=== PATIENT | male | born 1975 | race Caucasian/White ===

== ENCOUNTER 2017-09-13 17:48 | Emergency (ER) | payer BC ==
[2017-09-13 17:57] VITALS: TEMP 98.4
--- NOTE | 2017-09-13 18:01 | CPEKG ---
Heart Rate: 90 RR Interval: 667 P-R Interval: 172 QRSD Interval: 102 QT Interval: 388 QTC Interval: 475 P [place]: 68 QRS [place]: 67 T Wave [place]: 52 EKG Severity - NORMAL ECG - EKG Impression: SINUS RHYTHM Electronically Signed By: Mariel Sloan 13-Sep-2017 22:41:51
[2017-09-13 18:05] LABS: PLATELET COUNT 146 10^3/uL (150-400)
[2017-09-13 18:07] VITALS: O2SAT 95
--- NOTE | 2017-09-13 19:05 | EDPHY ---
H & P Stated Complaint: seizure - Personal History Current Tetanus Diphtheria and Acellular Pertussis (TDAP): Yes Tetanus Vaccine Date: <10 years - Medical/Surgical History Hx Asthma: No Hx Chronic Respiratory Disease: No Hx Diabetes: No Hx Cardiac Disease: No Hx Renal Disease: No Hx Cirrhosis: No Hx Alcoholism: Yes Hx HIV/AIDS: No Hx Splenectomy or Spleen Trauma: No Other PMH: epilepsy, plaque psoriasis, etoh abuse, jaw surgery - titanium implants throughout jaw (25 yrs ago) - Social History Smoking Status: Current some day smoker HPI/ROS: Chief complaint: Seizure History of present illness: This is a 42-year-old male with a reported history of epilepsy, currently on Keppra, brought to the emergency department by EMS after having a grand mal seizure. Patient was apparently at a bar when he slumped over and had a grand mal seizure that was witnessed. He did bite his cheek. There is urinary incontinence. EMS reports an improving postictal state. On my evaluation. He is alert and oriented x4. He states he is sore but otherwise feels well. States this is a typical type seizure. He gets a seizure 1 time a year or less, his last seizure was 8 to 9 months ago. He is followed by Dr. Ubaldo Turner. He takes Keppra daily and has not missed a dose recently. He does drink but he states not heavily. No other complaints. Review of systems: A 10 point review of systems was obtained and other than described above was negative (Slava Nathan) - Physical Exam Exam: General Appearance: Alert, nontoxic. Eyes: Pupils equal and round no pallor or injection. ENT, Mouth: Mucous membranes moist. Respiratory: There are no retractions, lungs are clear to auscultation. Cardiovascular: Regular rate and rhythm. Gastrointestinal: Abdomen is soft and non tender, no masses, bowel sounds normal. Neurological: Alert and oriented x4. Cranial nerves 2-12 grossly intact. Strength and sensation intact and symmetrical Skin: Warm and dry, no rashes. Musculoskeletal: The head is nontender Neck is supple non tender. Spine is nontender along its entire length. Extremities are symmetrical, full range of motion. Psychiatric: Patient is oriented X 3, there is no agitation. (Slava Nathan) Constitutional: Initial Vital Signs Temperature (C) 36.9 C 09/13/17 17:50 Heart Rate 96 09/13/17 17:50 Respiratory Rate 18 09/13/17 17:50 Blood Pressure 124/79 H 09/13/17 17:50 O2 Sat (%) 94 09/13/17 17:50 O2 Delivery Mode Room Air Allergies/Adverse Reactions: No Known Allergies Allergy (Unverified 01/28/11 20:30) Home Medications: Medication Instructions Recorded Adalimumab [Humira] 40 mg SQ Q14D 04/21/16 Cholecalciferol Vit D3 [Vitamin D3 1,000 units PO DAILY 05/31/16 (*)] Cyanocobalamin [Vitamin B12 (*)] 1,000 mcg PO DAILY 05/31/16 Multivitamins [Multivitamin (*)] 1 each PO DAILY 05/31/16 levETIRAcetam [Keppra 500 mg (*)] 1,500 mg PO BID 05/31/16 Acetaminophen [Tylenol 325mg (*)] 650 mg PO Q4HRS PRN #0 tab 06/01/16 LORazepam [Ativan (*)] 1 mg PO Q4HRS PRN #5 tab 06/01/16 Thiamine HCl [Vitamin B-1] 100 mg PO DAILY #20 tab 06/01/16 Medical Decision Making ED Course/Re-evaluation: Patient is discussed with my secondary supervising physician Dr. Mariel Sloan. Patient has a history of epilepsy and presents to the emergency department with EMS after having a grand mal seizure. On my evaluation he is A and O x4 with a nonfocal neurologic exam. Blood studies consistent with recent seizure. EKG unremarkable. He is IV hydrated. He has become slightly tachycardic in the emergency room and I do wonder if this is a mixed picture of epilepsy and alcohol withdrawal. He is given Ativan and Librium and improves. I have consulted with his Neurology group, Dr. Mekhi Hartley. He is comfortable with patient being discharged home with seizure precautions and following up in clinic. I have discussed at length with the patient seizure precautions. He is to continue his medications. Stay away from alcohol. Close follow-up with his neurologist. Strict return precautions are given. Patient voiced understanding and agreement with plan. (Slava Nathan) Differential Diagnosis: Seizure secondary to epilepsy, alcohol withdrawal, substance abuse (Slava Nathan) Other Provider: The patient was evaluated and managed by the Physician Security Solutions Engineer. I discussed the patient's presentation and course with the physician certified dental assistant and agree with the evaluation. My co-signature indicates that I have reviewed this chart and I agree with the findings and plan of care as documented. I am the secondary supervising physician. (Mariel Sloan) - Data Points Laboratory Results: Laboratory Results 09/13/17 17:52 09/13/17 17:52 Medications Given: Discontinued Medications Chlordiazepoxide HCl (Librium) 25 mg PO EDNOW ONE Stop: 09/13/17 19:10 Last Admin: 09/13/17 19:21 Dose: 25 mg Sodium Chloride (Ns) 1,000 mls @ 0 mls/hr IV ONCE ONE; Wide Open PRN Reason: Protocol Stop: 09/13/17 19:10 Last Admin: 09/13/17 19:21 Dose: 1,000 mls Lorazepam (Ativan Injection) 1 mg IVP EDNOW ONE Stop: 09/13/17 19:10 Last Admin: 09/13/17 19:21 Dose: 1 mg Departure - Departure Disposition: Home, Routine, Self-Care Clinical Impression: Seizure Condition: Good Instructions: Epilepsy (ED) Additional Instructions: Please call your neurologist office tomorrow, tell them you were in the emergency room last night and need a follow-up visit Continue taking your Keppra as prescribed Drink plenty of fluids to stay hydrated Maintain seizure precautions until cleared by your neurologist, this includes no driving, no riding bikes or other vehicles, no bathing or swimming or any other activity where if you had a seizure you could hurt yourself or someone else Please avoid the use of alcohol If symptoms worsen or new symptoms develop return to the emergency room for recheck Referrals: Patient,NotPresent [Unknown] - As per Instructions Ubaldo Turner MD [Medical Doctor] - As per Instructions
[2017-09-13] MEDS ORDERED: NS 1,000 ML IV ONE (19:09)
[2017-09-13] MEDS ORDERED: LORazepam 2 MG/ML INJ IVP ONE (19:09)
[2017-09-13] MEDS ORDERED: chlordiazePOXIDE 25 MG CAP PO ONE (19:09)
[2017-09-13 20:11] VITALS: BP 116/85; PULSE 101; RESP 16
== END 2017-09-13 20:21 | disposition home or self-care (01) ==
LOC: EDUNIT#
PROC: 3E0337Z Introduction of Electrolytic and Water Balance Substance into Peripheral Vein, Percutaneous Approach (ICD-10-PCS; principal; 2017-09-13)
DX: G40.909 Epilepsy, unspecified, not intractable, without status epilepticus (principal); F17.200 Nicotine dependence, unspecified, uncomplicated; E86.9 Volume depletion, unspecified
CPT/HCPCS: 96374; J2060

== ENCOUNTER 2017-12-14 19:08 | Emergency (ER) | payer BC ==
[2017-12-14] MEDS ORDERED: LORazepam 2 MG/ML INJ IVP ONE (19:12)
[2017-12-14] MEDS ORDERED: NS 1,000 ML IV ONE (19:12)
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
[2017-12-14 20:17] LABS: PLATELET COUNT 103 10^3/uL (150-400)
[2017-12-14] MEDS ORDERED: CHLORDIAZEPOXIDE 25MG PREPK#6 BTL TAKEHOME ONE (20:35)
[2017-12-14 21:08] VITALS: BP 123/83
== END 2017-12-14 21:13 | disposition home or self-care (01) ==
LOC: EDUNIT#
DX: G40.909 Epilepsy, unspecified, not intractable, without status epilepticus (principal); F10.10 Alcohol abuse, uncomplicated; F17.200 Nicotine dependence, unspecified, uncomplicated; E86.9 Volume depletion, unspecified
CPT/HCPCS: 96374; J2060

== ENCOUNTER 2018-12-31 05:25 | Day surgery (SDC) | payer BC ==
[2018-12-31] MEDS ORDERED: LR 1,000 ML IV ONE (05:47)
[2018-12-31] MEDS ORDERED: BUPIVACAINE 0.5% 30 ML SDV ONE (06:20)
[2018-12-31] MEDS ORDERED: EPINEPHrine 30 MG/30 ML MDV (0.1 MG/0.1 ML) ONE (06:20)
[2018-12-31] MEDS ORDERED: LIDO/EPI 1% **for epidural** 30 ML SDV ONE (06:22)
[2018-12-31] MEDS ORDERED: LIDOCAINE 1% 300 MG/30 ML SDV ONE (06:23)
[2018-12-31] MEDS ORDERED: CLINDAMYCIN 600 MG/DEXTROSE 50 ML IV ONE (06:45)
--- NOTE | 2018-12-31 06:47 | SOAPPROG ---
SOAP Progress Note Assessment/Plan: HISTORY AND PHYSICAL Name LATONYA FENTON (43yo, M) ID# [id number] 1975 Service Dept[address] MAIN OFFICE Provider MOE SIM M.D. Insurance Med Primary: [employer] ([employer]) Insurance # : [id number] Policy/Group # : [id number] Prescription: PRIMBCAL - Member is eligible. details Chief Complaint right shoulder bicipital groove injection on 11/29/2018 with relief of symptoms x 1 week. Symptoms are currently worse then before injection. Patient states after injection left shoulder, left hand hurts and is stiff. Patient's Care Team Orthopedic Surgeon: MOE SIM MD: [id number], [place] [address] , , Patient's Pharmacies [facility] #[id number] ([facility]): [address], [facility] [address], , Vitals None recorded. Allergies Allergies not reviewed (last reviewed 11/20/2018) NKDA patient will call back regarding antibiotic that he is allergic to that has caused rash in past when treated for cellulitis Medications Reviewed Medications acamprosate 333 mg tablet,delayed release 11/04/18 filled [facility] DEPO-Medrol 40 mg/mL suspension for injection Take 1 mL by injection route. 11/29/18 administered Moe Sim M.D. Humira 05/31/18 entered [facility] Humira Pen 40 mg/0.8 mL subcutaneous kit 11/08/18 filled [facility] Keppra 05/31/18 entered [facility] levETIRAcetam 750 mg tablet 11/15/18 filled [facility] naltrexone 50 mg tablet 06/17/18 filled [facility] Vaccines None recorded. Problems Reviewed Problems No known problems Arthritis of acromioclavicular joint - Onset: 12/13/2018, Right Shoulder pain - Onset: 11/29/2018, Right Disorder of shoulder - Onset: 11/20/2018, Right Subacromial impingement - Onset: 12/13/2018, Right Family History Family History not reviewed (last reviewed 11/20/2018) Social History Social History not reviewed (last reviewed 05/31/2018) Smoking Status: Former smoker Alcohol intake: Moderate Caffeine intake: Occasional Surgical History Surgical History not reviewed (last reviewed 05/31/2018) Other - 08/13/1990 Past Medical History Past Medical History not reviewed (last reviewed 05/31/2018) Seizures/Epilepsy: Y Screening None recorded. HPI This is a very pleasant 43 year old RHD male with: - epilepsy (tonic clonic seizures) followed by Dr. Ubaldo Turner - alcoholism - 1990 -- maxillar surgery to correct a severe underbite - 1997 -- right shoulder injury while rock climbing -- treated with PT - 03/13/18 -- seizure - 05/2018 -- right shoulder pain and popping sensation -- s/s c/w right shoulder instability with probable labral tear - 06/10/18 -- seizure - 06/18/18 -- right shoulder MRI -- degenerative partial tear of the superior glenoid labrum, associated with moderate adjacent chondral thinning within the superior glenoid articular surface, acromioclavicular degenerative arthopathy, sprain/partial tear of the lateral fibers of the coracoclavicular ligament. - 08/06/18 -- three grand mal seizures after alcohol consumption -09/2018 -- increased right shoulder pain -11/26/18 -- right shoulder MRI -- mild tendinopathy and partial tear distal supraspinatus tendon, mild subacromial bursitis, partial or nondisplaced tear in posterior superior labrum, minimal tendinopathy intra-articular biceps tendon , mild degenerative change AC joint, anterior curve to acromion -11/29/18 -- right shoulder bicipital groove injection -- one week of symptomatic relief followed by recurrence of symptoms He presents today for routine follow up on his right shoulder after undergoing a right shoulder bicipital groove injection on 11/29/18. ROS ROS as noted in the HPI Physical Exam Patient is a 43-year-old male. Bilateral shoulder examination Inspection/palpation: Right: TTP over bicipital groove Left: Normal resting posture Shoulder ROM (R / L / Normal) Forward flexion: 150 / 170 / 170 Abduction: 100 / 160 / 160 Extension: 30 / 40 / 40 Shoulder strength (R / L / Normal) Deltoid : 5/ 5 / 5 Biceps: 5/ 5 / 5 Shoulder sensory (R / L / Normal) Axillary: + / + / + Shoulder tests Stability tests OBriens: + / - / - Apprehension: + / - / - Relocation: - / - / - Jerk: - / - / - Rotator cuff tests Empty can: + / - / - Belly press: - / - / - Lift off : - / - / - Impingement tests Brenden: + / - / - Neer: - / - / - Cross-arm adduction: - / - / - Biceps test Speeds: + / - / - Yergason supination: - / - / - Assessment / Plan This is a very pleasant 43 year old RHD male with: - epilepsy (tonic clonic seizures) followed by Dr. Ubaldo Turner - alcoholism - 1990 -- maxillar surgery to correct a severe underbite - 1997 -- right shoulder injury while rock climbing -- treated with PT - 03/13/18 -- seizure - 05/2018 -- right shoulder pain and popping sensation -- s/s c/w right shoulder instability with probable labral tear - 06/10/18 -- seizure - 06/18/18 -- right shoulder MRI completed -- degenerative partial tear of the superior glenoid labrum, associated with moderate adjacent chondral thinning within the superior glenoid articular surface, acromioclavicular degenerative arthopathy, sprain/partial tear of the lateral fibers of the coracoclavicular ligament. -08/06/18 -- three separate seizures after alcohol consumption -09/2018 -- increased right shoulder pain -11/26/18 -- right shoulder MRI -- mild tendinopathy and partial tear distal supraspinatus tendon, mild subacromial bursitis, partial or nondisplaced tear in posterior superior labrum, minimal tendinopathy intra-articular biceps tendon , mild degenerative change AC joint, anterior curve to acromion -11/29/18 -- right shoulder bicipital groove injection -- one week of symptomatic relief followed by a worsening of symptoms For the right shoulder: - I have discussed with the patient the risks, benefits, alternatives and complications associated with both non-operative (specifically, rest, observation, activity modification, PT, injection) and operative (specifically, right shoulder arthroscopy with subacromial decompression, distal clavicle excision, labral debridement, LHB tenotomy and possible RC debridement and/or repair) forms of treatment - The patient fully understands the risks, benefits, alternatives, and complications associated with these forms of treatment and wishes to proceed with surgical intervention as detailed above. - He has signed the informed consent form for surgery and surgery will be scheduled for the near future. 1. Disorder of shoulder - Right M25.811: Other specified joint disorders, right shoulder 2. Shoulder pain - Right M25.511: Pain in right shoulder 3. Subacromial impingement - Right M75.41: Impingement syndrome of right shoulder 4. Biceps tendinitis - Right M75.21: Bicipital tendinitis, right shoulder BICEPS TENDINITIS: EXERCISES 5. Arthritis of acromioclavicular joint - Right M13.811: Other specified arthritis, right shoulder Return to Office None recorded. Encounter Sign-Off Encounter signed-off by Moe Sim M.D. 12/31/18 06:46 Objective: Vital Signs Temp Pulse Resp BP Pulse Ox 36.9 C 81 16 132/86 H 94 12/31/18 06:00 12/31/18 06:00 12/31/18 06:00 12/31/18 06:00 12/31/18 06:00 ICD10 Worksheet Patient Problems: Problems Problem Status Onset Seizure Acute
--- NOTE | 2018-12-31 06:47 | PDHPUP ---
History & Physical Update H&P update statement: This history and physical update is based on an assessment of the patient which was completed after admission or registration (within 24 hours), but prior to the surgery/procedure. H&P update: H&P reviewed & patient examined
[2018-12-31] MEDS ORDERED: MIDAZOLAM 2 MG/2 ML VIAL ONE (07:06)
[2018-12-31] MEDS ORDERED: MIDAZOLAM 2 MG/2 ML VIAL IVP ONE (07:07)
--- NOTE | 2018-12-31 07:08 | PDANEPAE ---
ANE Past Medical History - Cardiovascular History Hx Hypertension: No Hx Arrhythmias: No Hx Chest Pain: No Hx Coronary Artery / Peripheral Vascular Disease: No Hx CHF / Valvular Disease: No Hx Palpitations: No - Pulmonary History Hx COPD: No Hx Asthma/Reactive Airway Disease: No Hx Recent Upper Respiratory Infection: No Hx Oxygen in Use at Home: No Hx Sleep Apnea: No Sleep Apnea Screening Result - Last Documented: Negative - Neurologic History Hx Cerebrovascular Accident: No Hx Seizures: Yes Hx Dementia: No Neurologic History Comment: last seizure was 08/06/18 - Endocrine History Hx Diabetes: No - Renal History Hx Renal Disorders: No - Liver History Hx Hepatic Disorders: No - Neurological & Psychiatric Hx Hx Neurological and Psychiatric Disorders: Yes Neurological / Psychiatric History Comment: hx of depression - Cancer History Hx Cancer: No - Congenital Disorder History Hx Congenital Disorders: No - GI History Hx Gastrointestinal Disorders: No - Other Health History Other Health History: wears glasses. psoriasis- retrimmer follows - Chronic Pain History Chronic Pain: Yes (right shoulder, knee pain) - Surgical History Prior Surgeries: jaw surgery over 27 yrs ago ANE Review of Systems Review of Systems: - Exercise capacity METS (RN): 4 METS ANE Patient History - Allergies Allergies/Adverse Reactions: ceftriaxone [From Rocephin] Allergy (Verified 12/26/18 09:19) full body rash - Home Medications Home Medications: levETIRAcetam [Keppra 500 mg (*)] BID 05/31/16 [Last Taken 12/31/18 04:30] Herbals/Supplements -Info Only 12/26/18 [Last Taken 12/26/18] - NPO status NPO Since - Liquids (Date): 12/31/18 NPO Since - Liquids (Time): 04:45 NPO Since - Solids (Date): 12/30/18 NPO Since - Solids (Time): 18:00 - Smoking Hx Smoking Status: Former smoker - Family Anes Hx Family Hx Anesthesia Complications: none ANE Labs/Vital Signs - Vital Signs Blood Pressure: 132/86 Heart Rate: 81 Respiratory Rate: 16 O2 Sat (%): 94 Height: 175.26 cm Weight: 63.503 kg ANE Physical Exam - Airway Neck exam: FROM Mallampati Score: Class 1 Mouth exam: normal dental/mouth exam - Pulmonary Pulmonary: no respiratory distress - Cardiovascular Cardiovascular: regular rate and rhythym - ASA Status ASA Status: II ANE Anesthesia Plan Anesthesia Plan: general endotracheal anesthesia Regional Anesthesia: interscalene BP NB
[2018-12-31] MEDS ORDERED: fentaNYL 250 MCG/5 ML INJ ONE (07:13)
[2018-12-31] MEDS ORDERED: PROPOFOL 200 MG/20 ML VIAL ONE ×2 (07:13)
[2018-12-31] MEDS ORDERED: SUGAMMADEX SODIUM 200 MG/2 ML VIAL IVP ONE (08:37)
[2018-12-31] MEDS ORDERED: PHENYLEPHRINE HCL 100 MCG/ML SYR ONE (08:37)
[2018-12-31] MEDS ORDERED: KETOROLAC 30 MG/1 ML SDV ONE (08:37)
[2018-12-31] MEDS ORDERED: ROCURONIUM 100 MG/10 ML VIAL ONE (08:37)
[2018-12-31] MEDS ORDERED: PROMETHAZINE HCL 25 MG/ML INJ IVP PRN (09:00)
[2018-12-31] MEDS ORDERED: fentaNYL 100 MCG/2 ML INJ IVP PRN (09:00)
[2018-12-31] MEDS ORDERED: NALOXONE HCL 0.4 MG/ML INJ IVP PRN (09:00)
[2018-12-31] MEDS ORDERED: HYDROCODONE/APAP 5/325 TAB PO PRN (09:00)
--- NOTE | 2018-12-31 09:00 | POSTANESTH ---
Post Anesthetic Evaluation Cardiovascular Status: Normal, Stable Respiratory Status: Normal, Stable Level of Consciousness/Mental Status: Can Participate in Eval Pain Control: Adequate, Prn Tx Ordered Nausea/Vomiting Control: Adequate, Prn Tx Ordered Complications Possibly Related to Anesthesia: None Noted
[2018-12-31 10:47] VITALS: BP 147/104
--- NOTE | 2018-12-31 21:58 | GOP ---
[f rep st] OPERATIVE REPORT DATE OF OPERATION: 12/31/2018 SURGEON: Moe Sim MD REHABILITATION INSPECTOR: Mira Schaffer PA-C. PREOPERATIVE DIAGNOSIS: Right shoulder subacromial impingement, acromioclavicular joint arthritis, l teresa head of biceps tendinitis, partial-thickness rotator cuff tear. POSTOPERATIVE DIAGNOSIS: Right shoulder subacromial impingement, acromioclavicular joint arthritis, long head of biceps tendinitis, partial-thickness rotator cuff tear. PROCEDURE PERFORMED: Right shoulder arthroscopy with subacromial decompression, distal clavicle exci taiwo, labral debridement, long head of biceps tenotomy, and rotator cuff debridement. FINDINGS: ESTIMATED BLOOD LOSS: 3 cc. DESCRIPTION OF PROCEDURE: This is a very pleasant 43-year-old male who had right shoulder arthroscop y with a subacromial decompression, distal clavicle excision, labral debridement with a rotator cuff debridement, and long head of biceps tenotomy. IMPLANTS: None. COMPLICATIONS: None. /[id number]/MODL
== END 2018-12-31 11:15 | disposition home or self-care (01) ==
LOC: FSGY 05:25
PROVIDERS: ATTEND Orthopaedic Surgery Hand Surgery
DX: M75.41 Impingement syndrome of right shoulder (principal); M75.21 Bicipital tendinitis, right shoulder; M13.811 Other specified arthritis, right shoulder; M75.101 Unspecified rotator cuff tear or rupture of right shoulder, not specified as traumatic; M75.81 Other shoulder lesions, right shoulder; G40.309 Generalized idiopathic epilepsy and epileptic syndromes, not intractable, without status epilepticus; Z87.891 Personal history of nicotine dependence
CPT/HCPCS: J0171; J1885; J2250; J2370; J2704; J3010